=== PATIENT | male | born 1940 | race Caucasian/White ===

== ENCOUNTER → 2016-09-05 | Outpatient (CLI) | payer MEDICARE, OTHER ==
[~2016-09-05] VITALS: Ht 172.7 cm; Wt 97.1 kg
[~2016-09-05] MED LIST: ALLERGY RELIEF10 M1 PO; AMBIEN 10MG10 MG PO; ANTI-DIARRHEAL2 MG PO; ARICEPT10 MG PO; ASPIRIN 32325 MG/TAB PO; ASPIRIN 81M81 MG/TA2 PO; B-12 100 MCG; BENADRYL25 MG PO; CIALIS10 MG PO; CLOPIDOGREL PO; COQ(10)1010 MG PO; COZAAR100 MG PO; CRESTOR10 MG PO; FLONASE NASAL S16 GM NS; GLUCOPHAGE500 MG/TAB PO; HYZAAR 25 MG-101 TAB PO; LOPID600 MG PO; METOPROLOL25 MG PO; MEVACOR40 MG PO; NAMENDA 10MG TA10 MG PO; NATURE'S BLEND400 IU PO; NIACIN500 M3 PO; NORCO 325 MG-7.1 TAB PO; PANTOPRAZOLE40 MG PO; PLAVIX 75MG TAB75 MG PO; PREVACID 30MG30 M1 PO; PRILOSEC 20MG20 MG PO; PROTONIX 40MG T40 MG PO; ROXANOL 20MG20 MG/ML SL; SINGULAIR10 MG PO; TOPROL XL 25MG25 MG PO; TOPROL XL100 MG PO; TOPROL XL25 MG PO; TRANSDERM-0.5 MG/21 TD; TYLENOL 325MG325 MG PO; VITAMIN D31000 I1 PO; VITAMIN D32000 I1 PO; VITAMINC1000TA PO; XARELTO10 MG PO; ZOLOFT 100MG100 MG PO; ZOLOFT 50MG50 MG PO; ZYRTEC 10MG; ZYRTEC 10MG10 MG PO; [UNRECOGNIZED DRUG - OTHER] PO
[2016-09-05 14:03] VITALS: BP 114/67; PULSE 80
[2016-09-05 15:15] VITALS: BP 107/65; PULSE 74
[2016-09-05 19:17] LABS: PLEURAL FLUID LEFT SIDE; PLEURAL FLUID APPEARANCE CLOUDY; PLEURAL FLUID COLOR AMBER
[2016-09-05 19:55] LABS: GLUCOSE,PLEURAL FLUID 101 mg/dL
== END ==
LOC: COL.RAD 13:19
PROVIDERS: Internal Medicine
DX: C76.8 Malignant neoplasm of other specified ill-defined sites (principal); J91.0 Malignant pleural effusion

== ENCOUNTER 2016-10-12 07:10 | Outpatient (CLI) | payer MEDICARE, OTHER ==
[2016-10-12] VITALS (15 sets, daily range): BP systolic 100–145; BP diastolic 48–80; PULSE 63–95; TEMP 97.6
[~2016-10-12] VITALS: Ht 172.7 cm; Wt 89.8 kg
[~2016-10-12 07:10] MED LIST changes: -ANTI-DIARRHEAL2 MG PO; -ASPIRIN 81M81 MG/TA2 PO; -ROXANOL 20MG20 MG/ML SL; -TRANSDERM-0.5 MG/21 TD; -TYLENOL 325MG325 MG PO; -VITAMIN D31000 I1 PO; -ZOLOFT 100MG100 MG PO
[2016-10-12] MEDS ORDERED: ZYRTEC 10MG10 MG PO (07:39)
[2016-10-12] MEDS ORDERED: ASPIRIN 81M81 MG/TA2 PO (07:39)
== END 2016-10-12 14:44 | disposition home or self-care (01) ==
LOC: COL.RAD 07:10
DX: C34.32 Malignant neoplasm of lower lobe, left bronchus or lung (principal); J90 Pleural effusion, not elsewhere classified
CPT/HCPCS: 26396

== ENCOUNTER 2016-10-25 21:46 | Inpatient (IN) | payer MEDICARE, OTHER ==
[~2016-10-25] VITALS: Ht 172.7 cm; Wt 84.0 kg
[~2016-10-25 21:46] MED LIST changes: +ASPIRIN 81M81 MG/TA2 PO
[2016-10-25 22:11] LABS: BASO # 0.1 (0.0-0.2); BASO % 0.4 % (0.0-2.0); EOS # 0.2 (0.0-0.7); EOS % 1.5 % (0-4.0); GRAN # 11.6 (1.4-6.5); GRAN % 81.8 % (42.2-75.2); HEMOGLOBIN 9.5 g/dl (13.5-18.0); LYMPH # 1.1 (1.2-3.4); LYMPH % 7.4 % (20.0-51.0); MEAN CELL VOLUME 81 fl (80.0-100.0); MEAN CORPUSCULAR HEMOGLOBIN 26 pg (27.0-31.0); MEAN CORPUSCULAR HGB CONC 32 g/dl (33.0-37.0); MONO # 1.2 (0.1-0.6); MONO % 8.5 % (1.7-9.3); PLATELET COUNT 562 K/mm3 (130-400); REDCELL DISTRIBUTION WIDTH-CV 15.7 % (11.5-14.5); WHITE BLOOD COUNT 14.2 K/mm3 (4.8-10.8)
[2016-10-25 22:20] LABS: ADJUSTED CALCIUM 9.4 mg/dL (8.4-10.2); ALBUMIN 4.2 gm/dL (3.5-5.0); BILIRUBIN,TOTAL 0.7 mg/dL (0.0-1.0); CALCIUM 9.6 mg/dL (8.4-10.2); CREATININE, serum 1.9 mg/dL (0.66-1.25); POTASSIUM 4.6 mmol/L (3.4-5.0); TOTAL PROTEIN 8.1 gm/dL (6.4-8.2)
[2016-10-25 23:29] LABS: PH 5 (5-8); SQUAMOUS EPITHELIAL None Seen /hpf; URINE APPEARANCE Clear; URINE BACTERIA None Seen /hpf; URINE BILIRUBIN Negative (NEGATIVE); URINE BLOOD Negative (NEGATIVE); URINE COLOR Yellow; URINE GLUCOSE Negative (NEGATIVE); URINE KETONE Negative (NEGATIVE); URINE RBC None Seen /hpf; URINE UROBILINOGEN Negative (NEGATIVE); URINE WBC 0-2 /hpf
[2016-10-25] MEDS ORDERED: VITAMIN D31000 I1 PO (23:47)
[2016-10-25] MEDS ORDERED: ZOLOFT 100MG100 MG PO (23:48)
[2016-10-26] VITALS (7 sets, daily range): BP systolic 105–143; BP diastolic 49–64; PULSE 63–104; TEMP 97.7–100.6
[2016-10-27] VITALS (8 sets, daily range): BP systolic 100–163; BP diastolic 49–84; PULSE 50–119; TEMP 97.9–99.1
[2016-10-27 11:43] LABS: MEAN CELL VOLUME 81 fl (80.0-100.0); MEAN CORPUSCULAR HGB CONC 31 g/dl (33.0-37.0); MEAN PLATELET VOLUME 9.3 fl (7.4-10.4); PLATELET COUNT 573 K/mm3 (130-400); RED BLOOD COUNT 3.48 M/mm3 (4.20-5.60); REDCELL DISTRIBUTION WIDTH-CV 15.7 % (11.5-14.5); WHITE BLOOD COUNT 13.7 K/mm3 (4.8-10.8)
[2016-10-27 11:47] LABS: HEMOGLOBIN 8.8 g/dl (13.5-18.0); MEAN CORPUSCULAR HEMOGLOBIN 25 pg (27.0-31.0)
[2016-10-27 11:57] LABS: ADJUSTED CALCIUM 9.4 mg/dL (8.4-10.2); ALBUMIN 3.7 gm/dL (3.5-5.0); BILIRUBIN,TOTAL 0.6 mg/dL (0.0-1.0); CALCIUM 9.2 mg/dL (8.4-10.2); CREATININE, serum 1.52 mg/dL (0.66-1.25); POTASSIUM 3.6 mmol/L (3.4-5.0); TOTAL PROTEIN 7.5 gm/dL (6.4-8.2)
[2016-10-28] VITALS (12 sets, daily range): BP systolic 95–158; BP diastolic 45–65; PULSE 51–120; TEMP 97.6–99.3
[2016-10-28 18:37] LABS: MEAN CELL VOLUME 81 fl (80.0-100.0); MEAN CORPUSCULAR HGB CONC 32 g/dl (33.0-37.0); PLATELET COUNT 522 K/mm3 (130-400); RED BLOOD COUNT 3.09 M/mm3 (4.20-5.60); REDCELL DISTRIBUTION WIDTH-CV 15.9 % (11.5-14.5); WHITE BLOOD COUNT 13.7 K/mm3 (4.8-10.8)
[2016-10-28 18:48] LABS: HEMATOCRIT 25.1 % (42.0-52.0); HEMOGLOBIN 7.9 g/dl (13.5-18.0); MEAN CORPUSCULAR HEMOGLOBIN 26 pg (27.0-31.0)
[2016-10-29 03:34] VITALS: BP 153/66; PULSE 119; TEMP 97.4
[2016-10-29 07:38] VITALS: BP 132/86; PULSE 44; TEMP 98.8
[2016-10-29 11:11] VITALS: BP 132/63; PULSE 62; TEMP 99
[2016-10-29 15:10] VITALS: BP 128/58; PULSE 99; TEMP 98.8
[2016-10-29 18:56] LABS: CALCIUM 8.8 mg/dL (8.4-10.2); CREATININE, serum 1.49 mg/dL (0.66-1.25); POTASSIUM 3.3 mmol/L (3.4-5.0)
[2016-10-29 20:23] VITALS: BP 146/86; PULSE 113; TEMP 98.7
[2016-10-29 23:09] VITALS: BP 102/68; PULSE 137; TEMP 98.3
[2016-10-30] VITALS (244 sets, daily range): BP systolic 109–136; BP diastolic 60–88; PULSE 61–129; TEMP 97.5–98.5; O2SAT 78–99
[2016-10-30 07:38] LABS: MEAN CELL VOLUME 81 fl (80.0-100.0); MEAN CORPUSCULAR HGB CONC 31 g/dl (33.0-37.0); MEAN PLATELET VOLUME 9.1 fl (7.4-10.4); PLATELET COUNT 474 K/mm3 (130-400); RED BLOOD COUNT 3.01 M/mm3 (4.20-5.60); REDCELL DISTRIBUTION WIDTH-CV 16.2 % (11.5-14.5); WHITE BLOOD COUNT 13.7 K/mm3 (4.8-10.8)
[2016-10-30 07:56] LABS: CALCIUM 8.5 mg/dL (8.4-10.2); CREATININE, serum 1.63 mg/dL (0.66-1.25); POTASSIUM 3.3 mmol/L (3.4-5.0)
[2016-10-30 08:19] LABS: HEMATOCRIT 24.4 % (42.0-52.0); HEMOGLOBIN 7.6 g/dl (13.5-18.0); MEAN CORPUSCULAR HEMOGLOBIN 25 pg (27.0-31.0)
[2016-10-30 17:25] LABS: CALCIUM 9.1 mg/dL (8.4-10.2); CREATININE, serum 1.82 mg/dL (0.66-1.25); POTASSIUM 3.4 mmol/L (3.4-5.0)
[2016-10-30 23:07] LABS: CREATININE, serum 1.79 mg/dL (0.66-1.25); MAGNESIUM 1.6 mg/dL (1.6-2.3); PHOSPHOROUS 3.5 mg/dL (2.5-4.5); POTASSIUM 3.4 mmol/L (3.4-5.0)
[2016-10-31] VITALS (1110 sets, daily range): BP systolic 100–118; BP diastolic 64–93; PULSE 98–134; TEMP 97.8–98.9; O2SAT 68–100
[2016-10-31 07:41] LABS: BASO # 0.1 (0.0-0.2); BASO % 0.5 % (0.0-2.0); EOS # 0.3 (0.0-0.7); GRAN # 12.2 (1.4-6.5); GRAN % 84.9 % (42.2-75.2); LYMPH # 0.9 (1.2-3.4); LYMPH % 6.4 % (20.0-51.0); MEAN CELL VOLUME 79 fl (80.0-100.0); MEAN CORPUSCULAR HGB CONC 32 g/dl (33.0-37.0); MEAN PLATELET VOLUME 8.9 fl (7.4-10.4); MONO # 0.8 (0.1-0.6); MONO % 5.6 % (1.7-9.3); PLATELET COUNT 483 K/mm3 (130-400); RED BLOOD COUNT 2.97 M/mm3 (4.20-5.60); REDCELL DISTRIBUTION WIDTH-CV 16.2 % (11.5-14.5); WHITE BLOOD COUNT 14.3 K/mm3 (4.8-10.8)
[2016-10-31 07:50] LABS: HEMATOCRIT 23.5 % (42.0-52.0); HEMOGLOBIN 7.5 g/dl (13.5-18.0); MEAN CORPUSCULAR HEMOGLOBIN 25 pg (27.0-31.0)
[2016-10-31 07:51] LABS: CALCIUM 9.2 mg/dL (8.4-10.2); CREATININE, serum 1.91 mg/dL (0.66-1.25)
[2016-10-31 19:43] LABS: CALCIUM 9.6 mg/dL (8.4-10.2); CREATININE, serum 2.04 mg/dL (0.66-1.25); POTASSIUM 3.3 mmol/L (3.4-5.0)
[2016-11-01] VITALS (787 sets, daily range): BP systolic 95–127; BP diastolic 39–78; PULSE 81–108; TEMP 97.5–98.8; O2SAT 66–100
[2016-11-01 05:23] LABS: ALLEN TEST YES; ARTERIAL BLD GAS O2 SATURATION 91.3 % (92-100); ARTERIAL BLD GAS TCO2 CT 24.5; ARTERIAL BLOOD GAS HCO3 23.5 meq/L (22-26); ARTERIAL BLOOD GAS PO2 65.8 mmHg (80-100); ARTERIAL BLOOD GAS pH 7.47 (7.35-7.45); ATS? YES; OXYHEMOGLOBIN 90.6 %
[2016-11-01 06:40] LABS: BASO # 0.1 (0.0-0.2); BASO % 0.7 % (0.0-2.0); EOS # 0.5 (0.0-0.7); EOS % 3.5 % (0-4.0); GRAN % 83.2 % (42.2-75.2); LYMPH % 6.7 % (20.0-51.0); MEAN CELL VOLUME 77 fl (80.0-100.0); MEAN CORPUSCULAR HGB CONC 32 g/dl (33.0-37.0); MEAN PLATELET VOLUME 9.5 fl (7.4-10.4); MONO # 0.7 (0.1-0.6); MONO % 5.1 % (1.7-9.3); PLATELET COUNT 582 K/mm3 (130-400); RED BLOOD COUNT 3.05 M/mm3 (4.20-5.60); REDCELL DISTRIBUTION WIDTH-CV 15.9 % (11.5-14.5); WHITE BLOOD COUNT 14.4 K/mm3 (4.8-10.8)
[2016-11-01 06:43] LABS: HEMATOCRIT 23.6 % (42.0-52.0); HEMOGLOBIN 7.5 g/dl (13.5-18.0); MEAN CORPUSCULAR HEMOGLOBIN 25 pg (27.0-31.0)
[2016-11-01 09:50] LABS: CALCIUM 9.7 mg/dL (8.4-10.2); CREATININE, serum 2.02 mg/dL (0.66-1.25); MAGNESIUM 1.8 mg/dL (1.6-2.3); PHOSPHOROUS 4.2 mg/dL (2.5-4.5)
[2016-11-02] VITALS (178 sets, daily range): BP systolic 112–118; BP diastolic 63–69; PULSE 63–89; TEMP 97.5–98; O2SAT 75–100
[2016-11-02 05:40] LABS: BASO % 0.2 % (0.0-2.0); EOS % 0.1 % (0-4.0); GRAN # 13.1 (1.4-6.5); GRAN % 91.4 % (42.2-75.2); LYMPH # 0.8 (1.2-3.4); LYMPH % 5.2 % (20.0-51.0); MEAN CELL VOLUME 80 fl (80.0-100.0); MEAN CORPUSCULAR HGB CONC 32 g/dl (33.0-37.0); MEAN PLATELET VOLUME 9.5 fl (7.4-10.4); MONO # 0.3 (0.1-0.6); MONO % 1.9 % (1.7-9.3); PLATELET COUNT 552 K/mm3 (130-400); RED BLOOD COUNT 3.09 M/mm3 (4.20-5.60); REDCELL DISTRIBUTION WIDTH-CV 16.2 % (11.5-14.5); WHITE BLOOD COUNT 14.3 K/mm3 (4.8-10.8)
[2016-11-02 05:59] LABS: HEMATOCRIT 24.6 % (42.0-52.0); HEMOGLOBIN 7.8 g/dl (13.5-18.0); MEAN CORPUSCULAR HEMOGLOBIN 25 pg (27.0-31.0)
[2016-11-02 06:00] LABS: CALCIUM 9.2 mg/dL (8.4-10.2); CREATININE, serum 1.75 mg/dL (0.66-1.25); POTASSIUM 3.6 mmol/L (3.4-5.0)
[2016-11-02] MEDS ORDERED: TYLENOL 325MG325 MG PO (15:49)
[2016-11-02] MEDS ORDERED: ANTI-DIARRHEAL2 MG PO (15:49)
[2016-11-02] MEDS ORDERED: ROXANOL 20MG20 MG/ML SL ×3 (15:49→16:08)
[2016-11-02] MEDS ORDERED: TRANSDERM-0.5 MG/21 TD (15:50)
== END 2016-11-02 16:20 | disposition hospice, inpatient (51) | DRG 189 ==
LOC: COL.ER 21:46 → MEDICAL 22:24 → ICU 10-30 15:15
PROVIDERS: Emergency Medicine; Family Medicine; Internal Medicine; Internal Medicine Cardiovascular Disease; Internal Medicine Pulmonary Disease
PROC: 0B9P30Z Drainage of Left Pleura with Drainage Device, Percutaneous Approach (ICD-10-PCS; principal; 2016-10-28 11:30)
DX: J96.01 Acute respiratory failure with hypoxia (principal); C78.2 Secondary malignant neoplasm of pleura; C34.32 Malignant neoplasm of lower lobe, left bronchus or lung; N17.9 Acute kidney failure, unspecified; F05 Delirium due to known physiological condition; E46 Unspecified protein-calorie malnutrition; Z51.5 Encounter for palliative care; Z66 Do not resuscitate; I10 Essential (primary) hypertension; I25.10 Atherosclerotic heart disease of native coronary artery without angina pectoris; Z95.5 Presence of coronary angioplasty implant and graft; G30.9 Alzheimer's disease, unspecified; B91 Sequelae of poliomyelitis; E11.9 Type 2 diabetes mellitus without complications; I48.91 Unspecified atrial fibrillation; I27.2 Other secondary pulmonary hypertension
CPT/HCPCS: 99231-AI; 99233-AI; A7048; C1729; C1751; C1894; G0378; G8978-GP; G8979-GP; J1644; J1650; J1815; J1940; J2060; J2270; J2543; J2704; J2930; J3370; J7030; J7040; J7050